=== PATIENT | male | born 1935 | race Caucasian/White ===

== ENCOUNTER 2017-03-09 13:00 | Inpatient (IN) | payer MEDICARE, BC ==
[~2017-03-09] VITALS: Ht 170.2 cm; Wt 77.1 kg
[~2017-03-09 13:00] MED LIST: INSU100V28 SQ; NORCO PO
--- NOTE | 2017-03-09 13:30 | NUR ---
PT POSITIONED FOR COMFORT. AWAITING MSE.
--- NOTE | 2017-03-09 13:35 | NUR ---
PT WAKLKS IN UNSTEADY GAIT AND WAS AASKED MULTIPLE TIME TO STAY IN THE BED.
[2017-03-09] MEDS ORDERED: HYDROCODONE/APAP 10-325 MG TABLET PO ONE ×2 (13:45→18:30)
[2017-03-09] MEDS ORDERED: HYDROCODONE/APAP 10-325 MG TABLET ONE ×2 (14:07→18:38)
--- NOTE | 2017-03-09 15:20 | NUR ---
ASSISSTED THE PT CALLING .
[2017-03-09] MEDS ORDERED: LORAZEPAM 0.5 MG TABLET PO ONE (16:00)
[2017-03-09] MEDS ORDERED: LORAZEPAM 1 MG TABLET ONE (16:18)
--- NOTE | 2017-03-09 16:30 | NUR ---
HAD TO ASK THE SECURITY TO WATCH THE PT.
[2017-03-09] MEDS ORDERED: WARF5TAB6 PO (16:47)
--- NOTE | 2017-03-09 18:30 | NUR ---
PACHECO DUNCAN TALKED TO DR. BRAGA FOR SURGICAL CONSULT
--- NOTE | 2017-03-09 18:35 | NUR ---
PT IS AGITATED, SAYS WANTS TO WALK AROUND, WHILE THE GAIT IS UNSTABLE, CONFRONTS THE NURSES TRYING TP PROTECT HIM FROM FALLING
--- NOTE | 2017-03-09 19:10 | NUR ---
PT KEEP REQUESTING FOR WARFARIN 5 MG. NOTIFIED.
[2017-03-09 19:14] LABS: BASOPHILS % (AUTO) 0.5 % (0.0-2.0); EOSINOPHILS # (AUTO) 0.2 K/uL (0.0-0.7); EOSINOPHILS % (AUTO) 2.3 % (0.0-7.0); HEMATOCRIT 40.6 % (40-50); HEMOGLOBIN 13.8 G/DL (14.0-18.0); LYMPHOCYTES # (AUTO) 1.1 K/UL (0.8-4.8); LYMPHOCYTES % (AUTO) 13.4 % (20.5-51.5); MEAN CORPUSCULAR HEMOGLOBIN 31.6 UUG (27.0-31.0); MEAN CORPUSCULAR HGB CONC 34 g/dL (32.0-37.0); MEAN CORPUSCULAR VOLUME 92.8 FL (82.0-92.0); MONOCYTES # (AUTO) 0.7 K/UL (0.1-1.30); MONOCYTES % (AUTO) 8.9 % (0.0-11.0); NEUTROPHILS # (AUTO) 6.4 K/UL (1.8-8.9); NEUTROPHILS % (AUTO) 74.9 % (38.5-71.5); PLATELET COUNT (AUTO) 162 K/UL (150-450); RED BLOOD CELL COUNT(AUTO) 4.37 MIL/UL (4.7-6.1); WHITE BLOOD COUNT (AUTO) 8.4 K/UL (4.0-11.2)
[2017-03-09 19:22] LABS: CARBON DIOXIDE 24 mmol/L (21-32); CHLORIDE 100 mmol/L (98-107); CREATININE 1.7 mg/dL (0.6-1.3); GLUCOSE 231 mg/dL (74-106); POTASSIUM 5.6 mmol/L (3.5-5.1); UREA NITROGEN, BLOOD 51 mg/dL (7-18)
--- NOTE | 2017-03-09 19:24 | NUR ---
CALLED PHAN KELSEY, PT AND LEFT A MESSAGE
[2017-03-09] MEDS ORDERED: WARFARIN SODIUM 5 MG TABLET ONE (19:29)
[2017-03-09 19:34] LABS: ALANINE AMINOTRANSFERASE 27 U/L (16-63); ALKALINE PHOSPHATASE 55 U/L (50-136); ASPARTATE AMINOTRANSFERASE 20 U/L (15-37); BILIRUBIN,DIRECT 0.1 mg/dL (0.0-0.2); BILIRUBIN,TOTAL 0.6 mg/dL (0.2-1.0); TOTAL PROTEIN, SERUM 7.5 g/dL (6.4-8.2)
--- NOTE | 2017-03-09 20:09 | NUR ---
Harpal dorsey in EDM - 03/09/17 at 2011 by SONDRA Pt. admitted to [facility], under care of Yesi Mayen) Belongs List completed
--- NOTE | 2017-03-09 20:12 | NUR ---
Pt. admitted to [facility], under care of Dr. Mancuso Belongs List completed
--- NOTE | 2017-03-09 21:00 | NUR ---
charge nurse oneal made aware that pt is leaving AMA, called pt contact number to inform that pt is leaving hospital AMA, but nobody answer ,few attempts made with the phone numbers listed on the facesheet but still nobody answer, so we left a message.
--- NOTE | 2017-03-09 21:30 | NUR ---
pt received from ER, pt arrived to the room but refused to get his clothes changed, refused to have vitals signs taken. pt started asking "where's the doctor?" he was told that he will get his belt or brace and that the doctor is here to see him.pt is also asking for something to eat since he is diabetic.he also asked to get a shower. but all of these request are unable to implement since the patient refused to stay in the hospital. been explaining to pt that we need a call the doctor for orders,made him aware that everything is to be done in am since today is friday and no brace is available at this time. and pt started to reason out that is its not done tonight then he can go home and come back tomorrow. pt made aware he have a fracture thoracic and doctor wanted him to stay in the hospital.pt doesn't listen despite explaining to him many times over and over.pt walks with a cane and unsteady. pt wanted to go home since he only leaves few blocks from here ,he said he will be back in am.explained to pt that if he leaves AMA he has to sign a waiver that he is leaving against medical advice, pt read the papers and sign. i have to call md ,and was able to speak to Dr. Mancuso that pt wants to leave AMA.talk to pt again and told pt that md aware but pt wanted to still leave pt even wanted to walk out, noted pt is unsteady so have to get a wheelchair and bring him to the front door to wait for taxi, kennel supervisor made aware and gave a taxi voucher.waited for 15 mins for taxi and assisted pt to get inside the car. Addendum: 03/09/17 at 2334 by SHAMAR PARKER RN received pt from er, pt hard of hearing ,alert, oriented.pt enter the room started talking about seeing the doctor ,getting his belt or brace for his back, wanted to have a shower. but all of these request are unable to implement since the patient refused to get dressed and get vitals sign and even refused to stay in the room and talking about leaving the hospital if he will not get his brace. been explaining to pt that we need a call the doctor for orders,made him aware that everything is to be done in am since today is friday and no brace is available at this time. and pt started to reasoning out that is its not done tonight then he can go home and come back tomorrow. pt made aware he have a fracture thoracic and dangerous for him to go home with his condition.and doctor wanted him to stay in the hospital.pt doesn't listen despite explaining to him many times over and over.pt walks with a cane and unsteady. pt wanted to go home since he only leaves few blocks from here ,he said he will be back in am.explained to pt that if he leaves AMA he has to sign a waiver that he is leaving against medical advice, pt read the papers and sign. i have to call md ,and was able to speak to Dr. Mancuso that pt wants to leave AMA.talk to pt again and told pt that md aware but pt wanted to still leave pt even wanted to walk out walking, noted pt is unsteady so have to get a wheelchair and bring him to the front door to wait for taxi, kennel supervisor made aware and gave a taxi voucher.waited for 15 mins for taxi and assisted pt to get inside the car.unable to reached anybody from home number.
--- NOTE | 2017-03-10 08:05 | NUR ---
Tried contacting the patient to follow-up if he returned home safely but there was no answer on the home phone [ ]. Left a message to call back. Called the work phone - - but it was a wrong number.
[2017-03-10] MEDS ORDERED: WARFARIN SODIUM 5 MG TABLET PO ONE (17:00)
== END 2017-03-09 20:45 | disposition left against medical advice (07) | DRG 552 ==
LOC: ER 13:00 → MED 20:05
PROVIDERS: ADMIT Nurse Practitioner Acute Care; ATTEND Nurse Practitioner Acute Care
DX: S22.069A Unspecified fracture of T7-T8 vertebra, initial encounter for closed fracture (principal); V89.2XXA Person injured in unspecified motor-vehicle accident, traffic, initial encounter; Y92.410 Unspecified street and highway as the place of occurrence of the external cause; Z88.8 Allergy status to other drugs, medicaments and biological substances; E11.9 Type 2 diabetes mellitus without complications; G89.29 Other chronic pain; M47.814 Spondylosis without myelopathy or radiculopathy, thoracic region; M77.9 Enthesopathy, unspecified; M48.10 Ankylosing hyperostosis [Forestier], site unspecified; M40.204 Unspecified kyphosis, thoracic region
CPT/HCPCS: 36415; 72072; 72100; 85025; 85730; 93005; A4663